=== PATIENT | female | born 1995 | race Caucasian/White ===

== ENCOUNTER 2020-10-25 08:05 | Inpatient (IN) | payer BC ==
[~2020-10-25] VITALS: Ht 175.3 cm; Wt 78.9 kg
--- NOTE | 2020-10-25 08:42 | NUR ---
RAPID COVID TEST DONE PER DOCTOR ORDER. COVID TEST COLLECTED FROM BOTH NARES W/O ISSUE. PATIENT TOLERATED WELL.
--- NOTE | 2020-10-25 13:13 | PR ---
[facility] [address] [place] [address] Signed Progress Notes IP Datetime Report Generated by CPN: 10/25/2020 13:13 PROGRESS NOTES: [id number] Impression: Normal Progression of Labor; Reassuring Heart Rate Procedures: Artificial ROM; Sterile Vag Exam Plan: Continue Present Management Informed Consent Obtain: Vaginal Delivery VITAL SIGNS: [id number] Vital Signs: Reviewed; Within Normal Limits EXAM: [id number] Dilatation: 3.0 Effacement: 70 Station: -2 Contractions: q2 min MEMBRANES: [id number] Comments: Pt seen and examined. Doing well. CTXs increasing in frequency and intensity. Discussed AROM and pt agrees. AROM easily performed for moderate amoutn clear fluid. Discussed anticipated course of delivery FETUS A: [id number] FHR Baseline: 135 Variability: Moderate 6-25bpm Accelerations: 15X15 Decelerations: None FHR Category: Category I Presentation: Vertex Comments on Fetus A: No evidence of metabolic acidosis FETUS B: [id number] Signing Physician: Kali Omalley DO Copies: ~ *Electronically Signed* 10/25/20 1313 KALI OMALLEY DO PATIENT NAME: LELIA ELLER PROGRESS NOTE DATE OF : 95 PHYSICIAN: KALI OMALLEY DO RPT #: [id number] REPORT IS CONFIDENTIAL AND NOT TO BE RELEASED WITHOUT AUTHORIZATION
--- NOTE | 2020-10-25 15:04 | PR ---
[facility] [address] [facility] [place], [place] [address] Signed Progress Notes IP Datetime Report Generated by CPN: 10/25/2020 15:04 PROGRESS NOTES: [id number] Impression: Normal Progression of Labor Procedures: Sterile Vag Exam Plan: Continue Present Management Other Plans: Considering epidural Informed Consent Obtain: Vaginal Delivery VITAL SIGNS: [id number] Vital Signs: Reviewed; Within Normal Limits EXAM: [id number] Dilatation: 4.5 Effacement: 90 Station: -1 Contractions: q2 min MEMBRANES: [id number] Comments: Pt seen and examined. Doing well. Uncomfortable w/ contractions and considering epidural. No other concerns. Discussed anticipated course of labor/delivery FETUS A: [id number] FHR Baseline: 135 Variability: Moderate 6-25bpm Accelerations: 15X15 Decelerations: None FHR Category: Category I Presentation: Vertex Comments on Fetus A: No evidence of metabolic acidosis FETUS B: [id number] Signing Physician: Kali Omalley DO Copies: ~ *Electronically Signed* 10/25/20 1504 KALI OMALLEY DO PATIENT NAME: LELIA ELLER PROGRESS NOTE DATE OF : 95 PHYSICIAN: KALI OMALLEY DO RPT #: [id number] REPORT IS CONFIDENTIAL AND NOT TO BE RELEASED WITHOUT AUTHORIZATION
--- NOTE | 2020-10-25 16:42 | PR ---
[facility] [address] [facility] [place], [place] [address] Signed Progress Notes IP Datetime Report Generated by CPN: 10/25/2020 16:42 PROGRESS NOTES: [id number] Impression: Normal Progression of Labor Procedures: Sterile Vag Exam Plan: Continue Present Management; Anticipate Vaginal Delivery Other Plans: Considering epidural Informed Consent Obtain: Vaginal Delivery VITAL SIGNS: [id number] Vital Signs: Reviewed; Within Normal Limits EXAM: [id number] Dilatation: 4.5 Effacement: 90 Station: -1 Contractions: q2 min MEMBRANES: [id number] Comments: Pt seen and examined. Feeling pressure. Reducable anterior lip. Anticipate soon. Reviewed variabile decelerations and management during second stage of labor FETUS A: [id number] FHR Baseline: 135 Variability: Moderate 6-25bpm Accelerations: 15X15 Decelerations: None FHR Category: Category I Presentation: Vertex Comments on Fetus A: No evidence of metabolic acidosis FETUS B: [id number] Signing Physician: Kali Omalley DO Copies: ~ *Electronically Signed* 10/25/20 7141 KALI OMALLEY DO PATIENT NAME: LELIA ELLER PROGRESS NOTE DATE OF : 95 PHYSICIAN: KALI OMALLEY DO RPT #: [id number] REPORT IS CONFIDENTIAL AND NOT TO BE RELEASED WITHOUT AUTHORIZATION
--- NOTE | 2020-10-26 09:43 | PR ---
[facility] [address] [facility] [place], [place] [address] Signed PP Progress Notes Datetime Report Generated by CPN: 10/26/2020 09:43 SUBJECTIVE: [id number] Pain: Within Normal Limits Nausea/Vomiting: Denies Flatus: Yes Bowel Movement: No Vital Signs: [id number] Vital Signs: Reviewed; Within Normal Limits EXAM: Ongoing Cardiovascular: Normal Respiratory: Normal Abdomen/Uterus: Normal Lochia: Normal Breasts: Not Done CVA Tenderness: Normal Extremities: Normal Incision: Not Applicable Progress: Normal Exam Comments: Fundus firm U-2 nontender IMPRESSION/PLAN/PROCEDURES: [id number] Impression: Normal Progression Plan: Discharge Progress Notes: Pt seen and examined. Doing well. Ambulating, voiding, and tolerating full diet. Pain and lochia minimal. well. Desires d/c home today. No fevers/chills or other concerns. Reviewed d/c instructions in detail. Pt and partner planning on vasectomy for pp contraception. Signing Physician: Kali Omalley DO Copies: ~ *Electronically Signed* 10/26/20 0943 KALI OMALLEY DO PATIENT NAME: RAFITA,LELIA J PROGRESS NOTE DATE OF : 95 PHYSICIAN: KALI OMALLEY DO RPT #: [id number] REPORT IS CONFIDENTIAL AND NOT TO BE RELEASED WITHOUT AUTHORIZATION
== END 2020-10-26 18:00 | disposition home or self-care (01) | DRG 807 ==
LOC: FBC 08:05
PROVIDERS: ADMIT Obstetrics & Gynecology; ATTEND Obstetrics & Gynecology
PROC: 10E0XZZ Delivery of Products of Conception, External Approach (ICD-10-PCS; principal; 2020-10-25)
PROC: 10907ZC Drainage of Amniotic Fluid, Therapeutic from Products of Conception, Via Natural or Artificial Opening (ICD-10-PCS; 2020-10-25)
PROC: 00HU33Z Insertion of Infusion Device into Spinal Canal, Percutaneous Approach (ICD-10-PCS; 2020-10-25)
PROC: 3E0R3BZ Introduction of Anesthetic Agent into Spinal Canal, Percutaneous Approach (ICD-10-PCS; 2020-10-25)
PROC: 3E033VJ Introduction of Other Hormone into Peripheral Vein, Percutaneous Approach (ICD-10-PCS; 2020-10-25)
DX: O76 Abnormality in fetal heart rate and rhythm complicating labor and delivery (principal); Z37.0 Single live birth; Z20.822 Contact with and (suspected) exposure to COVID-19; Z3A.39 39 weeks gestation of pregnancy
CPT/HCPCS: 01960; 85027; A9270; C9803; U0003